=== PATIENT | male | born 1985 | race Caucasian/White ===

== ENCOUNTER 2020-10-29 19:07 | Inpatient (IN) | payer BC, SELFPAY ==
[~2020-10-29] VITALS: Ht 177.8 cm; Wt 82.6 kg
[2020-10-29 19:15] VITALS: BP 102/62
--- NOTE | 2020-10-29 19:15 | NUR ---
35/M BIBA FROM HOME. PT COMPLAINING OF RIGHT LOWER ABDOMINAL PAIN 10/10 RADIATING TO EPIGASTRIC AREA. PT HAD AN EPISODE OF N/V/D. DENIES ANY BLOODY STOOL OR PAINFUL URINATION. PMH: ASTHMA, GALLSTONE REMOVAL, ANXIETY NKA
--- NOTE | 2020-10-29 19:30 | NUR ---
DR STOKES AT BEDSIDE EXAMINING PATIENT
[2020-10-29] MEDS ORDERED: LORazepam 2 MG/ML VIAL IVP ONE (19:35)
[2020-10-29] MEDS ORDERED: KETOROLAC 30 MG/ML VIAL IVP ONE (19:35)
[2020-10-29] MEDS ORDERED: ONDANSETRON 4 MG/2 ML VIAL IVP ONE (19:35)
--- NOTE | 2020-10-29 19:40 | NUR ---
BLOOD SAMPLE AND URINE SAMPLE SENT TO LAB
[2020-10-29 19:54] LABS: APPEARANCE,URINE CLEAR (CLEAR); BILIRUBIN,URINE NEGATIVE (NEGATIVE); BLOOD, URINE NEGATIVE (NEGATIVE); COLOR,URINE YELLOW (YELLOW); LEUKOCYTE ESTERASE ,URINE NEGATIVE (NEGATIVE); NITRITE, URINE NEGATIVE (NEGATIVE); UGLUCOSE NEGATIVE (NEGATIVE)
[2020-10-29 20:00] LABS: BASOPHILS % (AUTO) 0.1 % (0.0-2.0); EOSINOPHILS # (AUTO) 0.1 K/uL (0-0.4); EOSINOPHILS % (AUTO) 0.3 % (0.0-4.0); HEMATOCRIT 46.7 % (36-52); HEMOGLOBIN 15.8 g/dL (12.0-18.0); LYMPHOCYTES # (AUTO) 0.9 K/uL (2.0-11.5); LYMPHOCYTES % (AUTO) 4.9 % (20.5-51.1); MEAN CORPUSCULAR HEMOGLOBIN 30 pg (27-31); MEAN CORPUSCULAR HGB CONC 34 g/dL (33-37); MONOCYTES # (AUTO) 0.9 K/uL (0.8-1.0); MONOCYTES % (AUTO) 5.3 % (1.7-9.3); NEUTROPHILS # (AUTO) 15.8 K/uL (1.8-7.7); NEUTROPHILS % (AUTO) 89.4 % (42.2-75.2); PLATELET COUNT (AUTO) 291 K/uL (140-450); RED BLOOD CELL COUNT(AUTO) 5.19 MIL/uL (4.20-6.10); RED CELL DISTRIBUTION WIDTH 13.8 % (11.6-13.7); WHITE BLOOD COUNT (AUTO) 17.6 K/uL (4.8-10.8)
--- NOTE | 2020-10-29 20:05 | NUR ---
PT TAKEN TO CT
--- NOTE | 2020-10-29 20:14 | NUR ---
PT RETURN FROM CT
[2020-10-29 20:18] LABS: ALBUMIN 4.5 g/dL (3.4-5.0); CARBON DIOXIDE 27.8 mmol/L (21-32); CREATININE 1.1 mg/dL (0.6-1.3); POTASSIUM 3.8 mmol/L (3.5-5.1); TOTAL BILIRUBIN 0.8 mg/dL (0.0-1.0)
[2020-10-29 20:24] LABS: BARBITURATE, URINE NEGATIVE ng/ml (NEG <=200); BENZODIAZEPINE, URINE NEGATIVE ng/mL (NEG <=200); CANNABINOID, URINE NEGATIVE ng/mL (NEG <=50); COCAINE, URINE NEGATIVE ng/mL (NEG <=300); OPIATE, URINE NEGATIVE ng/mL (NEG <=2000); PHENCYCLIDINE SCREEN,URINE NEGATIVE ng/mL (NEG <=25)
[2020-10-29] MEDS ORDERED: DICYCLOMINE 20 MG/2 ML VIAL IM ONE (21:00)
[2020-10-29] MEDS ORDERED: MORPHINE SULFATE 4 MG/ML SYR IVP ONE (22:00)
[2020-10-29] MEDS ORDERED: NACL 0.9% 1,000 ML IV ONE ×2 (22:00→23:25)
--- NOTE | 2020-10-29 22:58 | NUR ---
PT O2 SAT 85%. PT HOB ELEVATED. PT PLACED ON O2 2LPM/NC. O2 SAT NOW 100%
[2020-10-29] MEDS ORDERED: BEN10 PO (23:12)
[2020-10-29] MEDS ORDERED: METR500T1 PO (23:12)
[2020-10-29] MEDS ORDERED: DICYCLOMINE HCL LIQUID 20 MG, ALUMINUM HYD/MAG/SIMETHICONE 30 ML, LIDOCAINE VISCOUS 2% ... PO ONE ×3 (23:20)
[2020-10-29] MEDS ORDERED: DICYCLOMINE HCL LIQUID 10 MG/5 ML UDC ONE (23:21)
[2020-10-29] MEDS ORDERED: LIDOCAINE VISCOUS 2% 20 ML UDC ONE (23:21)
[2020-10-29] MEDS ORDERED: ALUMINUM HYD/MAG/SIMETHICONE 30 ML UDC ONE (23:21)
[2020-10-29] MEDS ORDERED: LEVOFLOXACIN 750 MG/D5W PREMIX 150 ML IV ONE (23:25)
[2020-10-29] MEDS ORDERED: metroNIDAZOLE 500 MG/NS PREMIX 100 ML IV ONE (23:25)
--- NOTE | 2020-10-30 00:06 | NUR ---
COVID JANA SWAB SENT TO LAB
--- NOTE | 2020-10-30 01:40 | NUR ---
RECEIVED PT AAOX4 , FROM ER/ [facility] NID - O2 SAT WNL . WALKS TO BED . PER PT THE ADBL . PAIN IS BIT REDUCED COMPARING TO IT WAS . NPO RE EMPHASIZE TO PT . ADMISSION ASSESSMENT DONE - MRSA SPECIMEN TO SENT TO LAB . SAFETY MEASURES IN PLACE - CALL LIGHT WITHIN REACH . PLAN OF CARE DISCUSSED AND VERBALIZE UNDERSATNDING . WILL CONT. TO MONITOR . PT . GOT ATIVAN IN THE ER .
--- NOTE | 2020-10-30 01:41 | NUR ---
Patient will be admitted to care of DR. MOSHER. Admited to [facility]. Will go to [id number]. Belongings list completed. Report to ÁNGEL GUIDO.
--- NOTE | 2020-10-30 03:23 | NUR ---
SLEEPING - NO S/X OF ACUTE DISTRESS NOTED - PT IS ON TELE MONITOR .
[2020-10-30] MEDS: DEXT 5% / NACL 0.45% 1,000 ML IV SCH ×2 (03:51→13:20)
[2020-10-30 04:00] VITALS: BP 110/72
[2020-10-30 05:37] LABS: HEMATOCRIT 40.3 % (36-52); HEMOGLOBIN 13.5 g/dL (12.0-18.0); MEAN CORPUSCULAR HEMOGLOBIN 31 pg (27-31); MEAN CORPUSCULAR HGB CONC 34 g/dL (33-37); MEAN CORPUSCULAR VOLUME 91.6 fL (80-94); PLATELET COUNT (AUTO) 273 K/uL (140-450); RED CELL DISTRIBUTION WIDTH 13.5 % (11.6-13.7); WHITE BLOOD COUNT (AUTO) 12.9 K/uL (4.8-10.8)
[2020-10-30 05:43] LABS: ALBUMIN 3.4 g/dL (3.4-5.0); ANION GAP 12.9 (8-16); CARBON DIOXIDE 25.4 mmol/L (21-32); CREATININE 1.1 mg/dL (0.6-1.3); POTASSIUM 4.3 mmol/L (3.5-5.1); TOTAL BILIRUBIN 0.7 mg/dL (0.0-1.0)
--- NOTE | 2020-10-30 06:08 | NUR ---
RESTING ON BED , WILL CONT. TO MONITOR .
[2020-10-30 06:20] LABS: LYMPHOCYTES % (MANUAL) 3 % (20-46); MONOCYTES % (MANUAL) 7 % (5-12)
--- NOTE | 2020-10-30 07:14 | NUR ---
ENDORSED- PT - STABLE .
--- NOTE | 2020-10-30 07:19 | NUR ---
RECEIVED BEDSIDE REPORT FROM NIGHTSHIFT NURSE FOR CONTINUITY OF CARE. PT RESTING IN BED. ABLE TO MAKE NEEDS KNOWN. RESPIRATIONS EVEN AND UNLABORED WITH NO SOB OR RESPIRATORY DISTRESS. SKIN WARM AND DRY TO TOUCH. IV SITE IN RAC 20G IS CLEAN, DRY, AND INTACT. SAFETY MEASURES IN PLACE. WILL CONTINUE TO MONITOR
[2020-10-30 08:00] VITALS: BP 103/87
[2020-10-30] MEDS ORDERED: ZOLPIDEM 5 MG TAB PO PRN (08:05)
[2020-10-30] MEDS ORDERED: ONDANSETRON 4 MG/2 ML VIAL IVP PRN (08:05)
[2020-10-30] MEDS ORDERED: HYDROcodone/APAP 5/325 MG 1 TAB TAB PO PRN (08:05)
[2020-10-30] MEDS ORDERED: LORazepam 2 MG/ML VIAL IM/IVP PRN (08:05)
[2020-10-30] MEDS ORDERED: MORPHINE SULFATE 2 MG/ML SYR IVP PRN (08:05)
[2020-10-30] MEDS ORDERED: DOCUSATE SODIUM 100 MG GELCAP PO PRN (08:05)
[2020-10-30 08:50] LABS: FREE T4 (FREE THYROXINE) 0.93 ng/dL (0.76-1.46); MAGNESIUM 1.8 mg/dL (1.8-2.4); THYROID STIMULATING HORMONE 0.56 uIU/mL (0.34-3.74)
[2020-10-30] MEDS: ACETAMINOPHEN 325 MG TAB PO PRN (08:57)
--- NOTE | 2020-10-30 08:58 | NUR ---
PT HAS FEVER AND MILD PAIN. PRN TYLENOL ADMINISTERED PRESCRIBED PER MD ORDER. MEDICATION EDUCATION PERFORMED. PT VERBALIZED UNDERSTANDING. SAFETY MEASURES IN PLACE. WILL CONTINUE TO MONITOR
--- NOTE | 2020-10-30 11:22 | NUR ---
SOCIAL WORK NOTE: Patient's Orientation Unable To Assess Information Provided By HOLLI HARVEY - Comments SW WAS UNABLE TO MEET PATIENT AT BEDSIDE. SW COMPLETED ASSESSMENT WITH PATIENT'S . Servicer, Realtionship and Phone Number HOLLI LEBLANC [phone] Healthcare Power of Homicide Squad Commanding Officer No Does Patient Have a POLST No Identifying Problems No Social Work Triggers Is A Social Work Consult Needed No Mandate Report Filed No Explanation Of Identifying Problems PATIENT IS A 35-YEAR-OLD MALE ADMITTED FOR COLITIS. PATIENT HAS PMHX OF ASTHMA. PATIENT'S REPORTED NO HX OF MENTAL HEALTH OR SUBSTANCE ABUSE. Admitted From Home Pre-Admission Level Of Functioning Status Independent/Ambulatory Prior Resources/Services Used In Last 12 Months No Prior Resources Used Prior DME No Prior DME Used Dialysis Comments N/A Living Situation Apartment Lives With Spouse Patient Had Caregiver No Home Support No Caregiver Issues Financial Issues No Known Financial Issue Referral To The Financial Counselor Needed No Factors/Needs No D/C Needs Identified Pt/Rep Participated In Discharge Plan Yes Patient/Family Agress With Discharge Plan Yes Discharge Plan Comments TENTATIVE DISCHARGE PLAN IS FOR PATIENT TO RETURN HOME. DC Plan Status Initiated
--- NOTE | 2020-10-30 11:33 | NUR ---
ROUNDED ON PATIENT. PT WAS ASLEEP COMFORTABLE. SAFETY MEASURES IN PLACE. WILL CONTINUE TO MONITOR.
--- NOTE | 2020-10-30 11:38 | NUR ---
DC PLANNIN YRS OLD MALE PATIENT WAS ADMITTED FROM HOME WITH A DX OF COLITIS. PT HAS A HX OF ASTHMA, ANXIETY AND CHOLECYSTECTOMY. CT ABD SHOWED TINY HIATAL HERNIA ,NO BOWEL OBSTRUCTION. RAPID COVID TEST NEGATIVE. BLOOD CULTURE PENDING. ADMINISTERED IVF, LEVAQUIN AND FLAGYL IV ABX. CONSULTED WITH GI DR HALE. DC PLAN TO GO HOME WHEN STABLE CM TO FOLLOW Addendum: 10/31/20 at 1057 by Mai Contreras RN DC PLANNING: RECEIVED A CALL FROM [employer] STEFAN BRAXTON SPOKE WITH [facility] CAPELLAN NUMBER [phone] STATED NEEDS A CLINICAL. FAXED ALL CLINICALS TO [phone]. SHE PROVIDED THE AUTH # [id number]. CM TO FOLLOW
[2020-10-30 12:00] VITALS: BP 99/71
[2020-10-30] MEDS: metroNIDAZOLE 500 MG/NS PREMIX 100 ML IV SCH ×2 (12:20→21:11)
--- NOTE | 2020-10-30 12:41 | NUR ---
ADMINISTERED MD SCHEDULED PRESCRIPTION OF ANTIBIOTICS. PATIENT COMPLAINT OF PAIN IN ABD, AND NAUSEA. ADMINISTERED PRN NORCO 5.325 MG, AND ZOFRAN 4MG/2ML. PATIENT TOLERATED MEDICATION. EDUCATION ON MEDICATION PROVIDED. SAFETY MEASURES IN PLACE. WILL CONTINUE TO MONITOR.
--- NOTE | 2020-10-30 13:15 | NUR ---
ADMINISTERED SCHED MED PRESCRIBED PER MD ORDER. PT TOLERATED WELL. MEDICATION EDUCATION PERFORMED. PT VERBALIZED UNDERSTANDING. SAFETY MEASURES IN PLACE. WILL CONTINUE TO MONITOR
[2020-10-30 16:00] VITALS: BP 108/68
--- NOTE | 2020-10-30 16:04 | NUR ---
UPON ASSESSMENT AFTER ABDOMINAL ULTRASOUND, PATIENT'S IV STARTED LEAKING. DISCONTINUED RIGHT AC IV, AND REINSERTED 20 G INTO LEFT HAND. PATIENT TOLERATED PROCEDURE. IV IS INTACT, PATENT AND CLEAN. SHEETS HAVE BEEN CHANGED DUE TO LEAKAGE FROM DISCONTINUED IV. PATIENT IS NOW RESTING. SAFETY MEASURES IN PLACE, W/ CALL LIGHT IN REACH. WILL CONTINUE TO MONITOR.
--- NOTE | 2020-10-30 18:51 | NUR ---
PATIENTS IV LINE DETACHED FROM IV INSERTION SITE. AFTER IN DEPTH CLEANING AND ASSESSMENT OF THE IV INSERTION SITE, IV INSERTION IS INTACT, CLEAN AND PATENT. PATIENT IS HOOKED BACK UP TO IV FLUIDS. EDUCATION WAS PROVIDE ON AWARENESS OF THE IV, AND IMPORTANCE OF KEEPING IT ATTACHED. PATIENT VERBALIZED UNDERSTANDING. SAFETY MEASRUES IN PLACE. WILL CONTINUE TO MONITOR.
--- NOTE | 2020-10-30 19:25 | NUR ---
ENDORSED PATIENT AT BEDSIDE WITH NIGHT NURSE TO CONTINUE CARE. PATIENT IS STABLE. SAFETY MEASURES IN PLACE.
--- NOTE | 2020-10-30 19:26 | NUR ---
RECEIVING PATIENT FROM AM NURSE FOR CONTINUITY OF CARE. PATIENT IS ON TELE MONITOR. A/A/O X4. RESPIRATORY EVEN AND UNLABORED, ON ROOM AIR, NO SIGN OF DISTRESS NOTED. SKIN WARM, DRY, NON-DIAPHORETIC. IV ON LEFT HAND 20G, IS INFUSING FLUID. PATIENT DENIES ANY PAIN OR DISCOMFORT. ABLE TO MAKE NEED KNOWN. AMBULATE TO BATHROOM INDEPENDENTLY WITH STEADY GAIT. PLAN OF CARE DISCUSSED, PATIENT VERBALIZED UNDERSTANDING. CALL LIGHT WITHIN REACH. WILL CONTINUE TO MONITOR.
[2020-10-30 20:00] VITALS: BP 110/68
[2020-10-30] MEDS ORDERED: LEVOFLOXACIN 750 MG/D5W PREMIX 150 ML IV SCH (21:00)
--- NOTE | 2020-10-30 21:00 | NUR ---
ROUND CHECK. PATIENT IS RESTING IN BED. NO SIGN OF DISTRESS NOTED. CALL LIGHT WITHIN REACH. WILL CONTINUE TO MONITOR.
--- NOTE | 2020-10-30 21:13 | NUR ---
SCHEDULE MEDICATION GIVEN. PATIENT EDUCATED, PATIENT VERBALIZED UNDERSTANDING. CALL LIGHT WITHIN REACH. WILL CONTINUE TO MONITOR.
[2020-10-31] VITALS: BP 101/48
--- NOTE | 2020-10-31 | NUR ---
ROUND CHECK. PATIENT IS SLEEPING, CHEST RISE AND FALL NOTED. AROUSABLE TO VOICE. CALL LIGHT WITHIN REACH. WILL CONTINUE TO MONITOR.
--- NOTE | 2020-10-31 00:04 | NUR ---
RECEIVED PHONE CALL FROM PATIENT'S - HOLLI HARVEY. PLAN OF CARE UPDATED, VERBALIZED UNDERSTANDING.
--- NOTE | 2020-10-31 02:00 | NUR ---
PATIENT IS SLEEPING, AROUSABLE WITH VOICE. NO SIGN OF DISTRESS NOTED. CALL LIGHT WITHIN REACH. WILL CONTINUE TO MONITOR.
[2020-10-31 04:00] VITALS: BP 118/67
[2020-10-31] MEDS: DEXT 5% / NACL 0.45% 1,000 ML IV SCH (04:16)
[2020-10-31] MEDS: ACETAMINOPHEN 325 MG TAB PO PRN (04:32)
--- NOTE | 2020-10-31 04:32 | NUR ---
PATIENT COMPLAINS GENERAL BODY ACHE 09/25. REQUESTS TYLENOL FOR MILD PAIN. PATIENT IS AWAKE AND ORIENTED X4. NO SIGN OF DISTRESS NOTED. CALL LIGHT WITHIN REACH. WILL CONTINUE TO MONITOR.
[2020-10-31] MEDS: metroNIDAZOLE 500 MG/NS PREMIX 100 ML IV SCH ×2 (04:33→12:32)
--- NOTE | 2020-10-31 05:32 | NUR ---
PAIN REASSESSMENT. PATIENT IS SLEEPING, NO SIGN OF DISTRESS NOTED. PRECAUTION IN PLACE. CALL LIGHT WITHIN REACH. WILL CONTINUE TO MONITOR.
[2020-10-31 06:02] LABS: BASOPHILS % (AUTO) 0.2 % (0.0-2.0); EOSINOPHILS % (AUTO) 0.5 % (0.0-4.0); HEMATOCRIT 39.4 % (36-52); HEMOGLOBIN 13.3 g/dL (12.0-18.0); LYMPHOCYTES # (AUTO) 1.3 K/uL (2.0-11.5); LYMPHOCYTES % (AUTO) 14.5 % (20.5-51.1); MEAN CORPUSCULAR HEMOGLOBIN 31 pg (27-31); MEAN CORPUSCULAR HGB CONC 34 g/dL (33-37); MEAN CORPUSCULAR VOLUME 91.5 fL (80-94); MONOCYTES # (AUTO) 1.2 K/uL (0.8-1.0); MONOCYTES % (AUTO) 14.1 % (1.7-9.3); NEUTROPHILS # (AUTO) 6.1 K/uL (1.8-7.7); NEUTROPHILS % (AUTO) 70.7 % (42.2-75.2); PLATELET COUNT (AUTO) 208 K/uL (140-450); RED BLOOD CELL COUNT(AUTO) 4.31 MIL/uL (4.20-6.10); RED CELL DISTRIBUTION WIDTH 13.6 % (11.6-13.7); WHITE BLOOD COUNT (AUTO) 8.6 K/uL (4.8-10.8)
[2020-10-31 07:10] LABS: ANION GAP 8.4 (8-16); CARBON DIOXIDE 29.3 mmol/L (21-32); CREATININE 0.9 mg/dL (0.6-1.3); POTASSIUM 3.7 mmol/L (3.5-5.1)
--- NOTE | 2020-10-31 07:10 | NUR ---
ENDORSED PATIENT TO AM NURSE FOR CONTINUITY OF CARE. PATIENT IS STABLE, NO SIGN OF DISTRESS NOTED.
--- NOTE | 2020-10-31 07:12 | NUR ---
RECEIVED PATIENT FROM NIGHT NURSE. PATIENT IN BED AWAKE, ALERT, AND ORIENTED X4. RESP EVEN AND UNLABORED ON ROOM AIR. DENIED OF PAIN AT THIS TIME. LH 20G INFUSING D5 1/2NS 75ML/HR. PLAN OF CARE DISCUSSED, PATIENT VERBALIZED UNDERSTANDING. HOB ELEVATED. SAFETY MEASURES IN PLACE. WILL CONTINUE TO MONITOR.
[2020-10-31 07:22] LABS: MAGNESIUM 1.9 mg/dL (1.8-2.4); PHOSPHORUS 2.1 mg/dL (2.5-4.9)
[2020-10-31 07:27] LABS: ALBUMIN 3.1 g/dL (3.4-5.0); BILIRUBIN,DIRECT 0.1 mg/dL (0.0-0.3); TOTAL BILIRUBIN 0.3 mg/dL (0.0-1.0)
[2020-10-31 08:00] VITALS: BP 102/62
--- NOTE | 2020-10-31 08:58 | NUR ---
PATIENT HAS BEEN SCREENED AND CATEGORIZED MODERATE NUTRITION RISK. PATIENT WILL BE SEEN WITHIN 3-5 DAYS OF ADMISSION. 11/01/20 11/03/[address]
--- NOTE | 2020-10-31 09:41 | NUR ---
PATIENT IN BED AWAKE AND ALERT. RESP EVEN AND UNLABORED ON ROOM AIR. PT STATED MILD DISCOMFORT TO ABD BUT BETTER THAN YESTERDAY. PATIENT TEACHING PROVIDED. LH 20G INFUSING WELL. PLAN OF CARE DISCUSSED, PATIENT VERBALIZED UNDERSTANDING. ABLE TO MAKE NEEDS KNOWN. AMBULATORY. CALL LIGHT WITHIN REACH. WILL CONTINUE TO MONITOR.
--- NOTE | 2020-10-31 11:48 | NUR ---
PATIENT IN BED AWAKE AND ALERT. RESP EVEN AND UNLABORED ON ROOM AIR. DENIED OF PAIN AT THIS TIME. DR MOSHER MADE ROUNDS AND UPDATED PATIENT ON PLAN OF CARE. NO ACUTE S/S DISTRESS AT THIS TIME. CALL LIGHT WITHIN REACH. WILL CONTINUE TO MONITOR.
[2020-10-31 12:00] VITALS: BP 123/76
--- NOTE | 2020-10-31 13:05 | NUR ---
PATIENT C/O FEELING SHORTNESS OF BREATH WALKING FROM THE BATHROOM, PATIENT SAFELY IN BED. DENIED OF PAIN AT THIS TIME. RT WAS CALLED TO BEDSIDE FOR ASSESSMENT AND TREATMENT.
[2020-10-31] MEDS ORDERED: ALBUTEROL HFA MDI 90 MCG/ACTUATION 8 GM INH PRN (13:10)
--- NOTE | 2020-10-31 13:10 | NUR ---
RECEIVED ORDER FOR ALBUTEROL INH PRN. RT MADE AWARE AND CARRIED OUT.
[2020-10-31 13:33] VITALS: BP 123/76
--- NOTE | 2020-10-31 16:08 | NUR ---
PATIENT LEFT DISCHARGED HOME WITH UBER. DISCHARGE INSTRUCTIONS GIVEN, PATIENT VERBALIZED UNDERSTANDING. NO VACCINE GIVEN AT THIS TIME. PATIENT LEFT IN STABLE CONDITION.
== END 2020-10-31 16:14 | disposition home or self-care (01) | DRG 392 ==
LOC: MED 19:07 → MTU 10-30
PROVIDERS: ADMIT Family Medicine; ATTEND Family Medicine
DX: K52.9 Noninfective gastroenteritis and colitis, unspecified (principal); R65.10 Systemic inflammatory response syndrome (SIRS) of non-infectious origin without acute organ dysfunction; D72.829 Elevated white blood cell count, unspecified; F41.9 Anxiety disorder, unspecified; E86.0 Dehydration; E83.51 Hypocalcemia; E83.39 Other disorders of phosphorus metabolism; J45.909 Unspecified asthma, uncomplicated; Z90.49 Acquired absence of other specified parts of digestive tract
CPT/HCPCS: 36415; 71045; 76705; 80048; 80053; 80076; 80305; 81003; 82150; 83036; 83605; 83690; 83735; 83880; 84100; 84439; 84443; 84484; 85025; 85610; 85730; 87040; 87081; 93005; 96361; 96365; 96372; 96375; 99285; J0500; J1885; J1956; J2060; J2270; J2405; J3490; J3535